=== PATIENT | male | born 1985 | race Caucasian/White ===

== ENCOUNTER 2017-01-16 09:30 | Emergency (ER) | payer OTHER ==
[2017-01-16 09:41] VITALS: BP 119/73; PULSE 69; TEMP 98; BMI 28.7
[2017-01-16] MEDS ORDERED: IBUPROFEN 400 MG TABLET (FP) PO ONE ×2 (10:03→10:07)
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
== END 2017-01-16 10:17 | disposition home or self-care (01) ==
LOC: JERFT 09:30
DX: M54.5 Low back pain (principal); M25.511 Pain in right shoulder
CPT/HCPCS: 99281-25

== ENCOUNTER 2017-06-19 09:03 | Emergency (ER) | payer OTHER, BC ==
[2017-06-19 09:14] VITALS: BP 141/92; PULSE 54; TEMP 98.3; BMI 26.8
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
== END 2017-06-19 09:56 | disposition home or self-care (01) ==
LOC: JERFT 09:03
DX: S86.912A Strain of unspecified muscle(s) and tendon(s) at lower leg level, left leg, initial encounter (principal); X58.XXXA Exposure to other specified factors, initial encounter; Y93.89 Activity, other specified; Y92.410 Unspecified street and highway as the place of occurrence of the external cause; Y99.0 Civilian activity done for income or pay
CPT/HCPCS: 73560-TC-LT; 99281-25

== ENCOUNTER 2020-06-12 08:38 | Emergency (ER) | payer OTHER ==
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
[2020-06-12 08:49] VITALS: BP 122/70; PULSE 58; TEMP 98.4; BMI 25.8
[2020-06-12] MEDS ORDERED: KETOROLAC TROMETHAMINE 30 MG/1 ML VIAL IM ONE (09:02)
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
[2020-06-12] MEDS ORDERED: KETOROLAC TROMETHAMINE 30 MG/1 ML VIAL ONE (09:10)
== END 2020-06-12 09:22 | disposition home or self-care (01) ==
LOC: JERFT 08:38
PROC: 3E0233Z Introduction of Anti-inflammatory into Muscle, Percutaneous Approach (ICD-10-PCS; principal; 2020-06-12)
DX: M79.602 Pain in left arm (principal)
CPT/HCPCS: 99284-25

== ENCOUNTER 2021-02-26 15:22 | Emergency (ER) | payer OTHER ==
[2021-02-26 15:30] VITALS: BP 138/82; PULSE 68; TEMP 97.8; BMI 26.5
[2021-02-26] MEDS ORDERED: IBUPROFEN 600 MG TABLET (FP) PO ONE ×2 (16:02→16:19)
== END 2021-02-26 17:10 | disposition home or self-care (01) ==
LOC: JERFT 15:22
DX: M54.2 Cervicalgia (principal); M54.6 Pain in thoracic spine
CPT/HCPCS: 99284-25

== ENCOUNTER 2024-09-18 18:42 | Emergency (ER) | payer OTHER ==
[2024-09-18 19:02] VITALS: BP 124/84; PULSE 81; RESP 16; TEMP 97.8; BMI 25.8
== END 2024-09-18 19:42 | disposition home or self-care (01) ==
LOC: JERFT 18:42
DX: S46.911A Strain of unspecified muscle, fascia and tendon at shoulder and upper arm level, right arm, initial encounter (principal); S39.012A Strain of muscle, fascia and tendon of lower back, initial encounter; W22.01XA Walked into wall, initial encounter
CPT/HCPCS: 99283-25